=== PATIENT | male | born 1960 | race Caucasian/White ===

== ENCOUNTER 2018-09-19 11:07 | Observation (INO) ==
[2018-09-19] MEDS ORDERED: ENOXAPARIN 100 MG/ML SYRINGE SUBCUT STA (11:33)
[2018-09-19 11:41] LABS: Basophils # 0.1 10*3/uL (0.0-0.2); Basophils % 0.8 % (0.0-0.8); Eosinophils # 0.4 10*3/uL (0.0-0.87); Eosinophils % 3.8 % (0.00-10.9); Hematocrit 52.7 VOL% (42.0-52.0); Hemoglobin 17.4 GM/DL (14.0-18.0); Immature Granulocytes % 0.6 %; Immature Granulocytes Absolute 0.06 #; Lymphocytes # 1.7 10*3/uL (1.4-4.0); Lymphocytes % 15.7 % (21.2-54.2); Mean Corpuscular Volume 89.6 FL (87-102); Mean Platelet Volume 11.8 FL (9.6-12.0); Monocytes % 7.9 % (1.7-12.7); Neutrophils % 71.2 % (38.7-73.9); Platelet Count 209 T/CUMM (130-400); Red Blood Count 5.88 MC/CUMM (3.8-5.5); Red Cell Distribution Width 14.2 % (9.3-17.3); White Blood Count 10.5 T/CUMM (4-12)
[2018-09-19 11:44] LABS: INR 1.1; PT Patient Result 11.4 SECS
[2018-09-19 11:59] LABS: Albumin 4.1 G/DL (3.4-5.0); Calcium 9.7 MG/DL (8.5-10.1); Osmolality,Calculated 295.7 MOS/KG (273-304); Total Protein 7.5 G/DL (6.4-8.3)
[2018-09-19] MEDS ORDERED: MAGNESIUM SULF RIDER 4 GM in PREMIX 1 EACH IV PRN (12:55)
[2018-09-19] MEDS ORDERED: POTASSIUM CHLORIDE 20 MEQ TABLET PO PRN (12:55)
[2018-09-19] MEDS ORDERED: MAGNESIUM SULF RIDER 2 GM in PREMIX 1 EACH IV PRN (12:55)
[2018-09-19] MEDS ORDERED: diphenhydrAMINE CAP 25 MG CAPSULE PO PRN (12:55)
[2018-09-19] MEDS ORDERED: DOCUSATE SODIUM 100 MG CAPSULE PO PRN (12:55)
[2018-09-19] MEDS ORDERED: BISACODYL 5 MG TABLET PO PRN (12:55)
[2018-09-19] MEDS ORDERED: guaiFENesin/DM ER 600-30 MG TABLET PO PRN (12:55)
[2018-09-19] MEDS ORDERED: ONDANSETRON 4 MG/2 ML VIAL IV PRN (12:55)
[2018-09-19] MEDS ORDERED: ACETAMINOPHEN 325 MG TABLET PO PRN (12:55)
[2018-09-19] MEDS ORDERED: MORPHINE 4 MG/1 ML VIAL IV PRN (12:55)
[2018-09-19] MEDS ORDERED: ZALEPLON 5 MG CAPSULE PO PRN (12:55)
[2018-09-19] MEDS ORDERED: NITROGLYCERIN SL 0.4 MG TABLET SL ONE (14:59)
[2018-09-19] MEDS ORDERED: NITROGLYCERIN SL 0.4 MG TABLET SL STA (15:05)
[2018-09-19 15:17] LABS: Troponin I < 0.015 NG/ML (0.00-0.045)
[2018-09-19] MEDS ORDERED: DEXTROSE 10% 25 GM/250 ML BAG IV PRN (15:31)
[2018-09-19] MEDS ORDERED: GLUCAGON 1 MG VIAL IM PRN (15:31)
[2018-09-19] MEDS ORDERED: MELATONIN 3 MG TABLET PO PRN ×2 (15:32→15:58)
[2018-09-19] MEDS ORDERED: COLCHICINE 0.6 MG CAPSULE PO PRN (15:32)
[2018-09-19] MEDS ORDERED: NITROGLYCERIN SL 0.4 MG TABLET SL PRN (15:38)
[2018-09-19] MEDS ORDERED: ALPRAZolam 0.25 MG TABLET PO PRN (17:33)
[2018-09-19] MEDS ORDERED: MAGNESIUM HYDROXIDE SUSP 30 ML UDCUP PO PRN (17:33)
[2018-09-19 17:43] LABS: Troponin I < 0.015 NG/ML (0.00-0.045)
[2018-09-19] MEDS: ENOXAPARIN 40 MG/0.4 ML SYRINGE SUBCUT SCH (17:54)
[2018-09-19] MEDS: INSULIN LISPRO 100 UNIT/ML SUBCUT SCH ×3 (17:55→21:29)
[2018-09-19] MEDS: SUCRALFATE 1 GM TABLET PO SCH ×2 (18:16→21:28)
[2018-09-19] MEDS: SODIUM CHLORIDE 0.9% 1,000 ML IV SCH ×2 (18:16→18:18)
[2018-09-19] MEDS: ALBUTEROL 2.5 MG/3 ML NEB RESP TX SCH (20:59)
[2018-09-19] MEDS ORDERED: FUROSEMIDE 80 MG TABLET PO SCH (21:00)
[2018-09-19] MEDS ORDERED: INSULIN GLARGINE 100 UNIT/ML SUBCUT SCH (21:00)
[2018-09-19] MEDS: busPIRone 15 MG TABLET PO SCH (21:28)
[2018-09-19] MEDS: GABAPENTIN 400 MG CAPSULE PO SCH (21:28)
[2018-09-20] MEDS: ALBUTEROL 2.5 MG/3 ML NEB RESP TX SCH ×3 (01:47→13:50)
[2018-09-20 04:43] LABS: Basophils # 0.1 10*3/uL (0.0-0.2); Basophils % 0.6 % (0.0-0.8); Eosinophils # 0.4 10*3/uL (0.0-0.87); Eosinophils % 4.2 % (0.00-10.9); Hematocrit 50.2 VOL% (42.0-52.0); Hemoglobin 16.5 GM/DL (14.0-18.0); Immature Granulocytes % 0.3 %; Immature Granulocytes Absolute 0.03 #; Lymphocytes # 1.4 10*3/uL (1.4-4.0); Lymphocytes % 15.6 % (21.2-54.2); Mean Corpuscular HGB Conc 32.9 GM/DL (32-36); Mean Corpuscular Volume 89.2 FL (87-102); Mean Platelet Volume 12.6 FL (9.6-12.0); Monocytes % 9.1 % (1.7-12.7); Neutrophils % 70.2 % (38.7-73.9); Platelet Count 179 T/CUMM (130-400); Red Blood Count 5.63 MC/CUMM (3.8-5.5); Red Cell Distribution Width 14.1 % (9.3-17.3); White Blood Count 8.8 T/CUMM (4-12)
[2018-09-20 04:57] LABS: Calcium 9.6 MG/DL (8.5-10.1); Osmolality,Calculated 291.7 MOS/KG (273-304); Risk Ratio 4.25; Thyroid Stimulating Hormone 3.47 uIU/ml (0.358-3.74); VLDL CHOLESTEROL 42.2 MG/DL
[2018-09-20] MEDS ORDERED: ASPIRIN EC 81 MG TABLET PO SCH (09:00)
[2018-09-20] MEDS ORDERED: SIMVASTATIN 20 MG TABLET PO SCH (09:00)
[2018-09-20] MEDS ORDERED: CETIRIZINE 10 MG TABLET PO SCH (09:00)
[2018-09-20] MEDS ORDERED: PANTOPRAZOLE 40 MG TABLET PO SCH (09:00)
[2018-09-20] MEDS ORDERED: METOPROLOL SUCCINATE XL 25 MG TABLET PO SCH (09:00)
[2018-09-20] MEDS ORDERED: SPIRONOLACTONE 25 MG TABLET PO SCH (09:00)
[2018-09-20] MEDS ORDERED: LISINOPRIL 2.5 MG TABLET PO SCH (09:00)
[2018-09-20] MEDS: SUCRALFATE 1 GM TABLET PO SCH ×3 (09:11→16:12)
[2018-09-20] MEDS: GABAPENTIN 400 MG CAPSULE PO SCH ×2 (09:12→16:12)
[2018-09-20] MEDS: busPIRone 15 MG TABLET PO SCH (09:12)
[2018-09-20] MEDS: INSULIN LISPRO 100 UNIT/ML SUBCUT SCH ×6 (09:13→17:30)
[2018-09-20] MEDS ORDERED: diphenhydrAMINE CAP 25 MG CAPSULE PO ONE (11:42)
[2018-09-20] MEDS ORDERED: DIAZEPAM 5 MG TABLET PO ONE (11:42)
[2018-09-20] MEDS ORDERED: HYDROmorphone 2 MG/1 ML VIAL ONE (11:50)
[2018-09-20] MEDS ORDERED: LIDOCAINE 1% 20 ML VIAL ONE (11:50)
[2018-09-20] MEDS ORDERED: MIDAZOLAM 2 MG/2 ML VIAL ONE (11:50)
[2018-09-20] MEDS: ENOXAPARIN 40 MG/0.4 ML SYRINGE SUBCUT SCH (13:54)
[2018-09-20] MEDS: SODIUM CHLORIDE 0.9% 1,000 ML IV SCH (13:54)
[2018-09-20 16:17] VITALS: BP 110/68
== END 2018-09-20 18:10 | disposition home or self-care (01) ==
LOC: EDUNIT# → EDBD → N.ED 11:07 → N.EDINP 11:07 → N.TELES 15:39
PROVIDERS: ADMIT Internal Medicine Cardiovascular Disease; ATTEND Internal Medicine Cardiovascular Disease